=== PATIENT | male | born 1970 | race Caucasian/White ===

== ENCOUNTER 2024-01-14 16:37 | Inpatient (IN) | payer SELFPAY ==
[2024-01-14 18:04] VITALS: BMI 24.7
[2024-01-14] MEDS ORDERED: POLYETHYLENE GLYCOL (HEALTHYLAX) 3350 17 GM PACKET PO PRN ×2 (18:54→19:37)
[2024-01-14] MEDS ORDERED: NALOXONE HCL (KLOXXADO) 8 MG SPRAY NS PRN ×2 (18:54→19:37)
[2024-01-14] MEDS ORDERED: BENZOCAINE/MENTHOL (CHLORASEPTIC ) LOZENGE MM PRN ×2 (18:54→19:37)
[2024-01-14] MEDS ORDERED: IBUPROFEN 400 MG TABLET (FP) PO PRN ×2 (18:54→19:37)
[2024-01-14] MEDS ORDERED: METHOCARBAMOL 500 MG TABLET PO PRN (18:54)
[2024-01-14] MEDS ORDERED: guaiFENesin 600 MG TABLET.ER (FP) PO PRN ×2 (18:54→19:37)
[2024-01-14] MEDS ORDERED: LOPERAMIDE HCL 2 MG CAPSULE PO PRN ×2 (18:54→19:37)
[2024-01-14] MEDS ORDERED: ACETAMINOPHEN 325 MG TABLET (FP) PO PRN ×2 (18:54→19:37)
[2024-01-14] MEDS ORDERED: BENZONATATE 200 MG CAPSULE PO PRN ×2 (18:54→19:37)
[2024-01-14] MEDS ORDERED: MAGNESIUM HYDROX 2400MG/30ML ORAL SUSPENSION 30 ML CUP PO PRN ×2 (18:54→19:37)
[2024-01-14] MEDS ORDERED: NALOXONE HCL 0.4 MG/ML VIAL IVPUSH PRN (18:54)
[2024-01-14] MEDS ORDERED: hydrOXYzine PAMOATE 25 MG CAPSULE (FP) PO PRN (18:54)
[2024-01-14] MEDS ORDERED: MAG HYDROX/AL HYDROX/SIMETH 30 ML UNIT-DOSE CUP PO PRN ×2 (18:54→19:37)
[2024-01-14] MEDS ORDERED: IBUPROFEN 600 MG TABLET (FP) PO PRN (19:37)
[2024-01-14] MEDS ORDERED: BISMUTH SUBSALICYLATE 524 MG/30 ML PO PRN (19:37)
[2024-01-14] MEDS ORDERED: DICYCLOMINE HCL 10 MG CAPSULE PO PRN (19:37)
[2024-01-14] MEDS ORDERED: NALOXONE HCL 0.4 MG/ML VIAL IM PRN (19:37)
[2024-01-14] MEDS ORDERED: THIAMINE HCL 100 MG TABLET (FP) PO SCH (22:00)
[2024-01-14] MEDS ORDERED: MELATONIN 5 MG TABLETS PO SCH (22:00)
[2024-01-14] MEDS: MELATONIN 5 MG TABLETS PO SCH (22:36)
[2024-01-14] MEDS: THIAMINE HCL 100 MG TABLET (FP) PO SCH (22:36)
[2024-01-14] MEDS: methaDONE HCL 10 MG TABLET (FOR DETOX USE ONLY) PO ONE (22:37)
[2024-01-14] MEDS: hydrOXYzine PAMOATE 25 MG CAPSULE (FP) PO PRN (22:39)
[2024-01-15] MEDS: ONDANSETRON *ODT* 4 MG TABLET SL PRN (05:16)
[2024-01-15] MEDS: ONDANSETRON *ODT* 4 MG TABLET SL ONE (06:51)
[2024-01-15] MEDS: cloNIDine HCL 0.1 MG TABLET PO PRN (07:26)
[2024-01-15] MEDS ORDERED: PRENATAL VITAMINS W/ FOLIC ACID TABLET (FP) PO SCH (10:00)
[2024-01-15] MEDS: PRENATAL VITAMINS W/ FOLIC ACID TABLET (FP) PO SCH (10:07)
[2024-01-15] MEDS: METHOCARBAMOL 500 MG TABLET PO PRN (10:08)
[2024-01-15] MEDS: amLODIPine BESYLATE 5 MG TABLET (FP) PO SCH (12:55)
[2024-01-16] MEDS: methaDONE HCL 10 MG TABLET (FOR DETOX USE ONLY) PO ONE (10:42)
[2024-01-17] MEDS: IBUPROFEN 600 MG TABLET (FP) PO PRN (22:11)
[2024-01-18 08:57] VITALS: BP 110/75; PULSE 75; RESP 18; TEMP 98.3
[2024-01-18] MEDS: methaDONE HCL 10 MG TABLET (FOR DETOX USE ONLY) PO ONE (10:31)
== END 2024-01-18 09:40 | disposition other institution (70) | DRG 773 ==
LOC: YASAS 16:37 → Y6N 19:51
PROVIDERS: ADMIT Allergy & Immunology; ATTEND Allergy & Immunology
PROC: HZ2ZZZZ Detoxification Services for Substance Abuse Treatment (ICD-10-PCS; principal; 2024-01-14)
DX: F11.23 Opioid dependence with withdrawal (principal); F14.20 Cocaine dependence, uncomplicated; F17.210 Nicotine dependence, cigarettes, uncomplicated; I10 Essential (primary) hypertension; Z86.19 Personal history of other infectious and parasitic diseases; Z59.01 Sheltered homelessness
CPT/HCPCS: 80305; 87635; 87811; 93005; 93010; Q0162